=== PATIENT | male | born 1990 | race Caucasian/White ===

== ENCOUNTER → 2016-05-10 | Day surgery (SDC) | payer OTHER, SELFPAY ==
[~2016-05-10] VITALS: Ht 193 cm; Wt 69.1 kg
[~2016-05-10] MED LIST: CLARITIN10 MG PO; THERA-VITE W/ B1 TAB PO; VICODIN 5-3001 EACH PO
--- NOTE | ~2016-05-10 | OR ---
PATIENT'S NAME: GAMA RAE [facility] AGE: 26 Y [address] ROOM: [place] [address] LOCATION: [facility] – [place] ADMIT DATE: 05/10/2016 OR/Procedure Report DISCHARGE DATE: FAMILY PHYSICIAN: Stevenson Walker MD ATTENDING PHYSICIAN: TYLER WHALEY SURGEON: Tyler Whaley MD QUANTITATIVE ANALYST MARKETING: Ron Kruse, LICENSED LOAN OFFICER/PAINTER AND BODY MECHANIC APPRENTICE DATE OF PROCEDURE: 05/10/2016 PREOPERATIVE DIAGNOSES: 1. Retained hardware, right ankle, status post open reduction and internal fixation of open right ankle fracture dislocation. 2. Painful retained hardware at right ankle medial and lateral malleoli. 3. Healed right ankle lateral malleolus fracture. PROCEDURES PERFORMED: 1. Removal of hardware from right ankle (medial and lateral malleoli). 2. Right ankle fluoroscopic examination under anesthesia. ANESTHESIA: General anesthesia plus local anesthesia. DRAINS: None. SPECIMENS: None. COMPLICATIONS: None. INDICATION FOR PROCEDURE: Mr. Rae is a 26-year-old male presenting with focal pain at the medial and lateral malleoli of the right ankle associated with prominent retained hardware. Past orthopedic history is significant for having sustained an open right ankle fracture dislocation in [place] for which he underwent irrigation and debridement and open reduction and internal fixation on December 09, 2015. The fracture has healed. He returned home with an incompletely healed medial wound. He has significant residual focal discomfort over the medial and lateral hardware. The medial incision ultimately healed without evidence of infection, and the fracture appears healed anatomically radiographically. The patient has requested to proceed with hardware removal. I have informed him that it is premature to remove all of the lateral hardware, but that removal of his most prominent lateral screws would be reasonable at this point. The medial screw is also very symptomatic. The medial screw appears to have been placed as part of a deltoid ligament repair. He has been informed of the potential for infection. Informed consent granted. Due to the amount of lingering right ankle discomfort, I have recommended that we PATIENT'S NAME: GAMA RAE [facility] AGE: 26 Y [address] ROOM: [place] [address] LOCATION: [facility] [place] ADMIT DATE: 05/10/2016 OR/Procedure Report DISCHARGE DATE: FAMILY PHYSICIAN: Stevenson Walker MD ATTENDING PHYSICIAN: TYLER WHALEY perform stress radiograph (to rule out syndesmosis instability) while he is under anesthesia. DESCRIPTION OF PROCEDURE: The patient was positioned supine. Prophylactic antibiotics and general anesthesia were administered. A well-padded pneumatic tourniquet was placed around the right proximal thigh. The right lower extremity was prepped and draped with vigilant sterile technique. 5 mm longitudinal incisions were made within the preexisting medial and lateral scars to approach the single medial screw and the 3 most prominent lateral screws. Blunt dissection proceeded down to the heads of each of these screws, and the 4 screws were removed intact. There was no fluid surrounding any of the screws, and all the screws remained intact and well fixed. All 4 incisions were thoroughly irrigated with sterile saline containing bacitracin and infiltrated with local anesthetic (Marcaine) prior to closure of each of the 4 wounds with horizontal mattress interrupted 3-0 nylon sutures. The dressings consisted of Xeroform gauze followed by sterile gauze, ABD pads, and an Geraldo wrap. POSTOPERATIVE REHABILITATION PLAN: Nonweightbearing. Maximize elevation. Sutures may be removed at 9 days. The patient has been encouraged to avoid strenuous activities of any sort for one month. He may progress to weightbearing as tolerated (but not through pain) if his incisions appear benign at his first postop appointment. MD BRITTNY SOUZAW/modl /[id number] d: 05/10/16 1138 t: 05/17/16 0716, OPERATIVE SUMMARY
[2016-05-10 06:06] LABS: BASOPHIL % 0.5 %; EOSINOPHIL # 0.1 K/uL (0.0-0.5); EOSINOPHIL % 1.5 %; HEMATOCRIT 46.3 % (37.0-53.0); HEMOGLOBIN 16.2 g/dL (12.0-17.0); IMMATURE GRANULOCYTE % 0.2 %; LYMPHOCYTE # 4.1 K/uL (0.8-4.0); LYMPHOCYTE % 48.5 %; MCH 29.5 pg (27.0-34.0); MCV 84.2 fl (83.0-98.0); MONOCYTE # 0.7 K/uL (0.0-1.0); MONOCYTE % 8.1 %; MPV 9.3 fl (9.4-12.4); NEUTROPHIL # (ANC) 3.5 K/uL (1.4-9.0); NEUTROPHIL % 41.2 %; NRBC % 0 /100WBC (0-0.00); PLATELET COUNT 301 K/uL (150-450); RDW-CV 12.2 % (11.9-14.6); WBC 8.4 K/uL (4.0-11.0)
== END | disposition disaster alternative care site (69) ==
LOC: GPOC 05-06 15:00 → GSDC 05:23
PROVIDERS: Orthopaedic Surgery
PROC: 0YP90JZ Removal of Synthetic Substitute from Right Lower Extremity, Open Approach (ICD-10-PCS; principal; 2016-05-10)
DX: T84.84XA Pain due to internal orthopedic prosthetic devices, implants and grafts, initial encounter (principal)
CPT/HCPCS: J0690; J2001; J7120